=== PATIENT | female | born 1960 | race Caucasian/White ===

== ENCOUNTER 2020-01-06 10:24 | Emergency (ER) | payer OTHER ==
[~2020-01-06] VITALS: Ht 177.8 cm; Wt 74.5 kg
--- NOTE | 2020-01-06 10:32 | PHYS DOC ---
Past History Past Medical History: Other (seasonal allergies) Smoking: Non-smoker General Adult EDM: Chief Complaint: FOOT INJURY PAIN HPI: HPI: Healthy 59-year-old female who presents for evaluation of inversion injury of the right ankle that occurred just prior to arrival. She slipped on a patch of what grass this morning. She fell onto her buttocks. No head injury. No other areas of pain noted. No anticoagulants or antiplatelet use. Prior sprain of the right ankle. Currently unable to bear weight. Review of Systems: Review of Systems: General: No fevers, chills. Eyes: No blurred vision, diplopia. ENT: No facial pain, epistaxis. CV: No chest pain, syncope. Resp: No shortness of breath, cough. GI: No abdominal pain, nausea, vomiting. : No perineal pain, hematuria. Neuro: No headache, dizziness, weakness. MSK: No back pain. Reports right ankle pain. Skin: No acute rash, lesion. Heart Score: Risk Factors: Risk Factors: DM, Current or recent (<one month) smoker, HTN, HLP, family history of CAD, obesity. Risk Scores: Score 0 - 3: 2.5% MACE over next 6 weeks - Discharge Home Score 4 - 6: 20.3% MACE over next 6 weeks - Admit for Clinical Observation Score 7 - 10: 72.7% MACE over next 6 weeks - Early Invasive Strategies Physical Exam: PE: Gen: NAD. Well nourished. Head: NC/AT Eyes: No scleral icterus. No conjunctival injection. PERRL. ENT: MMM. No epistaxis or septal hematoma. Neck: Supple. NT. Chest: No anterior chest wall TTP. No crepitus. Symmetric chest rise. CV: RRR. Peripheral pulses intact. Resp: CTAB. Abd: Soft. NT. ND. Back: No midline TTP or stepoffs. MSK: No peripheral cyanosis. Diffuse tenderness of the right ankle with swelling and mild ecchymosis of the lateral malleolus, but no open lesions lacerations, or abrasions. Bilateral DP pulses 2+ and symmetric. Able to actively range the toes of the right foot. Neuro: A&Ox3. Strength & sensation grossly intact throughout. GCS 15. Skin: Warm. Dry. Psych: Appropriate mood & affect. EKG: EKG: [] Radiology/Procedures: Radiology/Procedures: 3 views the right ankle no comparison. INDICATION: Ankle injury with swelling. FINDINGS: There is a transverse fracture the distal fibula. There is an obliquely oriented fracture of the medial malleolus. There is likely a vertically oriented fracture of the posterior malleolus. There is significant subcutaneous swelling with widening of the ankle mortise. There is lateral subluxation of the talus on the distal tibia. Benign cystic appearing lesion is identified in the calcaneus measuring approximately 2 cm. IMPRESSION: 1. Suspect trimalleolar fracture with lateral subluxation of the talus and ligamentous instability. There is diffuse subcutaneous edema as well. Electronically signed by: Sachin Kennedy MD (01/06/2020 10:55 AM) [id number] Course & Med Decision Making: Course & Med Decision Making Pertinent Labs and Imaging studies reviewed. (See chart for details) In summary, 59-year-old female who presents with inversion injury of the right ankle, found to have a bimalleolar, possibly trimalleolar fracture with significant displacement, undergoing procedural sedation and partial reduction with splinting. Spoke with Dr. Mccallum of orthopedic surgery at [facility]. Requests transfer for possible operative management later today. 1303: Accepted for transfer for admission by Dr. Messer for likely OR today with Dr. Mccallum. Scotty Disclaimer: Scotty Disclaimer: This electronic medical record was generated, in whole or in part, using a voice recognition dictation system. Departure Departure: Impression: Primary Impression: Trimalleolar fracture of right ankle Disposition: 05 TRANSFER OTHER ([facility] - Dr. Messer) Condition: STABLE Referrals: PCP,NO (PCP) Procedural Sedation Proc Sed Indication: Closed reduction right ankle Consent: Written Physician Involvement: The attending physician was present and supervising this procedure. Pre-Sedation Documentation and Exam: A and O 4. Hemodynamically stable. Mallampati 1. Last PO yesterday evening. Airway Assessment: Patent. Mallampati 1. Prior History of Anesthesia Complications: None ASA Classification: 1 Sedation/ Anesthesia Plan: Ketamine, propofol. Medications Used: As above. Monitoring and Safety: The patient was placed on a monitor technician and vital signs, pulse oximetry and level of consciousness were continuously evaluated throughout the procedure. The patient was closely monitored until recovery from the medications was complete and the patient had returned to baseline status. Respiratory therapy was on standby at all times during the procedure. (The following sections must be completed) Post-Sedation Vital Signs: See RN notes. Post-Sedation Exam: Baseline preprocedural mentation. Complications: Transient hypoxia 80s, responsive to nasal cannula 4 L. Vital Signs Vital Signs Date Time Temp Pulse Resp B/P (MAP) Pulse Ox O2 Delivery O2 Flow Rate FiO2 01/06/20 11:54 65 14 144/77 (99) 98 Room Air 01/06/20 10:34 97.9 MELANIE WILSON DO Jan 06, 2020 10:32
--- NOTE | 2020-01-06 10:57 | RAD ---
3 views the right ankle no comparison. INDICATION: Ankle injury with swelling. FINDINGS: There is a transverse fracture the distal fibula. There is an obliquely oriented fracture of the medial malleolus. There is likely a vertically oriented fracture of the posterior malleolus. There is significant subcutaneous swelling with widening of the ankle mortise. There is lateral subluxation of the talus on the distal tibia. Benign cystic appearing lesion is identified in the calcaneus measuring approximately 2 cm. IMPRESSION: 1. Suspect trimalleolar fracture with lateral subluxation of the talus and ligamentous instability. There is diffuse subcutaneous edema as well. Electronically signed by: Sachin Kennedy MD (01/06/2020 10:55 AM) [id number]
[2020-01-06] MEDS ORDERED: PROPOFOL 10,000 MCG/ML (20ML) VIAL IV ONE (11:00)
[2020-01-06] MEDS ORDERED: KETAMINE HCL 500 MG/10 ML VIAL. IV ONE (11:00)
[2020-01-06] MEDS ORDERED: MIDAZOLAM HCL PF 5 MG/5 ML VIAL. IV ONE (11:15)
--- NOTE | 2020-01-06 12:16 | RAD ---
Right ankle 3 views INDICATION: Post reduction COMPARISON: Earlier same day right ankle x-rays FINDINGS: The patient's ankle has been placed in a cast. There has been an attempt at reduction of the displaced trimalleolar acute right ankle fracture. There is improvement in malalignment with less medial displacement of the tibial plafond relative to the talar dome. However, alignment is not anatomic and there remains offset between the fibular metaphysis and the distal fibular diaphysis with some override. Associated soft tissue swelling and mild deformity remains present. IMPRESSION: Residual deformity and malalignment following attempted closed reduction of an acute trimalleolar right ankle fracture. Electronically signed by: Kitty Brown MD (01/06/2020 12:13 PM) [id number]
[2020-01-06 12:55] VITALS: BP 150/78
== END 2020-01-06 13:38 | disposition short-term general hospital (02) ==
LOC: ER 10:24
DX: S82.851A Displaced trimalleolar fracture of right lower leg, initial encounter for closed fracture (principal); W01.0XXA Fall on same level from slipping, tripping and stumbling without subsequent striking against object, initial encounter; Y93.89 Activity, other specified; Y92.89 Other specified places as the place of occurrence of the external cause; Y99.8 Other external cause status
CPT/HCPCS: 27818; 73610; 96372; 99285; J2250; J2704; J3010; J3490; 99152